=== PATIENT | male | born 1995 ===

== ENCOUNTER 2019-09-28 15:56 | Emergency (ER) | payer BC ==
[2019-09-28] MEDS ORDERED: Lidocaine 1% with EPINEPHrine 1:100,000 10 ML MDV INFILT ONE (15:57)
[2019-09-28] MEDS ORDERED: cefTRIAXone 1 GM Vial IM ONE (17:24)
--- NOTE | 2019-09-28 17:31 | EDM.PDOC ---
ED HPI GENERAL MEDICAL PROBLEM - General Chief Complaint: Laceration Stated Complaint: LACERATION RT INDEX FINGER Time Seen by Provider: 09/28/19 16:55 Source of Information: Reports: Patient History Limitations: Reports: No Limitations - History of Present Illness INITIAL COMMENTS - FREE TEXT/NARRATIVE: Was working with a matchet when it dropped and he reached out to catch it and it cut his right 3rd finger on the tip Started bleeding immediately and pt not able to control bleeding has minimal pain Tetanus is UTD Onset: Today Onset Date: 09/28/19 Duration: Minutes: (30) Location: Reports: Upper Extremity, Right Quality: Reports: Ache Improves with: Reports: Cold Therapy Associated Symptoms: Reports: No Other Symptoms - Related Data Allergies Allergy/AdvReac Type Severity Reaction Status Date / Time No Known Allergies Allergy Verified 02/28/15 21:32 Home Meds: Home Meds Albuterol [Proventil HFA] 2 puff INH Q4H PRN 02/28/15 [History] predniSONE [predniSONE Dose Pack] 20 mg PO ASDIRECTED #10 dospk 02/28/15 [Rx] Sulfamethoxazole/Trimethoprim [Bactrim Ds Tablet] 1 each PO BID #20 tablet 09/27 [Rx] ED ROS GENERAL - Review of Systems Review Of Systems: Comprehensive ROS is negative, except as noted in HPI. ED EXAM, SKIN/RASH Exam: See Below Exam Limited By: No Limitations General Appearance: Alert, WD/WN, No Apparent Distress Ears: Normal External Exam Throat/Mouth: Normal Inspection Head: Atraumatic Neck: Supple, Non-Tender Respiratory/Chest: No Respiratory Distress Neurological: Alert, Oriented Psychiatric: Normal Affect, Normal Mood Location, Skin: Upper Extremity, Right Characteristics: Linear Comments: laceration at base of 4th finger about 0.8cm in length , clean linear well approximated superficial Laceration at tip of 3rd finger : 5cm long x0.5wide x 0.8cm deep. Tendon seen in the wound , pt able to extend and flex finger freely, denies any numbness tingling in the finger , bleeding noted, controlled with pressure ED SKIN PROCEDURES - Laceration/Wound Repair Right Distal Digit - 3rd (Middle) Appearance: Subcutaneous, Clean Distal NVT: Neuro & Vascular Intact Anesthetic Type: Digital Local Anesthesia - Lidocaine (Xylocaine): 1% with EPI Local Anesthetic Volume: Other (6cc) Skin Prep: Chlorhexidine (Hibiciens), Saline, Sterile Drape Saline Irrigation (cc's): 30 Exploration/Debridement/Repair: Wound Explored, Explored to Base (tendon noted in the base of the wound), No Foreign Material Found Closed with: Sutures Lac/Wound length In cm: 5 Suture Size: 4-0 # of Sutures: 11 Suture Type: Nylon, Simple Suture Size: 4-0 # of Sutures: 1 (running) Repaired with: Vicryl Drain Placement: No Sterile Dressing Applied: Nurse Tetanus Status Addressed: Yes Complications: No Progress/Comments: wound care discussed May have probable tendon damage though function of finger fully preserved May have tingling to the finger tip due to nerve damage TO follow up with Hand surgeon if any concerns Course - Orders/Labs/Meds Meds: Medications Discontinued Medications Generic Name Dose Route Start Last Admin Trade Name Anibal PRN Reason Stop Dose Admin Ceftriaxone Sodium 1 gm 09/28/19 17:24 Rocephin IM 09/28/19 17:25 ONETIME ONE - Re-Assessments/Exams Free Text/Narrative Re-Assessment/Exam: 09/28/19 17:41 Laceration repair done Pt tolerated it well Departure - Departure Time of Disposition: 17:45 Disposition: Home, Self-Care 01 Condition: Fair Clinical Impression: Laceration of finger of right hand without damage to nail - Discharge Information *PRESCRIPTION DRUG MONITORING PROGRAM REVIEWED*: Not Applicable *COPY OF PRESCRIPTION DRUG MONITORING REPORT IN PATIENT AIDEE: Not Applicable Prescriptions: Sulfamethoxazole/Trimethoprim [Bactrim Ds Tablet] 1 each PO BID #20 tablet Instructions: Laceration Care, Adult, [id number] Referrals: PCP,None [Primary Care Provider] - Additional Instructions: 1) Keep wound clean and dry 2) Daily wound dressing after 48 hrs 3) Suture removal in 7-10 days 4) return for recheck if you note any signs of infection : increased redness, swelling with pain , pus discharge , warm to touch
[2019-09-28 18:30] VITALS: BP 150/99; PULSE 97
== END 2019-09-28 17:45 | disposition home or self-care (01) ==
LOC: FB.ED 15:56
DX: S61.210A Laceration without foreign body of right index finger without damage to nail, initial encounter (principal)
CPT/HCPCS: 12002; 96372; 99282; J0696